=== PATIENT | female | born 1985 | race Caucasian/White ===

== ENCOUNTER 2024-07-17 10:12 | Outpatient (CLI) | payer BC | END 2024-07-17 10:13 | disposition home or self-care (01) | LOC: CSHSLEEP 10:12 | PROVIDERS: ATTEND Family Medicine | DX: G47.33 Obstructive sleep apnea (adult) (pediatric) (principal); R53.83 Other fatigue; R51.9 Headache, unspecified; E66.9 Obesity, unspecified; Z68.42 Body mass index [BMI] 45.0-49.9, adult; R06.83 Snoring; I10 Essential (primary) hypertension; G47.61 Periodic limb movement disorder | CPT/HCPCS: 95810 ==